=== PATIENT | female | born 1950 | race Caucasian/White ===

== ENCOUNTER → 2016-05-16 | Outpatient (CLI) | payer MEDICARE, BC ==
[~2016-05-16] MED LIST: COZAAR100 MG PO; CRESTOR 10MG10 MG PO; ENTOCORT EC3 MG PO; PROTONIX 40MG T40 MG PO; SYNTHROID0.05 MG/TA PO; XANAX XR1 M1 PO
== END ==
LOC: MC.RAD 13:20
DX: Z12.31 Encounter for screening mammogram for malignant neoplasm of breast (principal)

== ENCOUNTER → 2016-05-22 | Outpatient (CLI) | payer MEDICARE, BC | LOC: COL.RAD 09:52 | DX: M25.551 Pain in right hip (principal) | CPT/HCPCS: J3301 ==

== ENCOUNTER → 2016-08-28 | Outpatient (CLI) | payer MEDICARE, BC | LOC: COL.RAD 07:36 | DX: M25.551 Pain in right hip (principal) | CPT/HCPCS: J3301; Q9967 ==

== ENCOUNTER → 2016-11-27 | Outpatient (CLI) | payer MEDICARE, BC | LOC: COL.RAD 08:49 | DX: M25.551 Pain in right hip (principal) | CPT/HCPCS: J3301 ==

== ENCOUNTER → 2017-02-24 | Outpatient (CLI) | payer MEDICARE, BC | LOC: COL.RAD 10:23 | DX: K75.81 Nonalcoholic steatohepatitis (NASH) (principal); R74.8 Abnormal levels of other serum enzymes; Z90.5 Acquired absence of kidney; Z85.528 Personal history of other malignant neoplasm of kidney; K83.8 Other specified diseases of biliary tract ==

== ENCOUNTER → 2017-03-18 | Outpatient (CLI) | payer MEDICARE, BC | LOC: COL.RAD 02-25 10:00 | DX: M16.11 Unilateral primary osteoarthritis, right hip (principal) | CPT/HCPCS: J3301; Q9967 ==

== ENCOUNTER → 2017-07-02 | Outpatient (CLI) | payer MEDICARE, BC | LOC: COL.RAD 09:34 | DX: C64.2 Malignant neoplasm of left kidney, except renal pelvis (principal); Z90.5 Acquired absence of kidney; Z90.710 Acquired absence of both cervix and uterus; Z90.49 Acquired absence of other specified parts of digestive tract | CPT/HCPCS: J7040; Q9967 ==

== ENCOUNTER 2017-09-11 10:20 | Inpatient (IN) | payer MEDICARE, BC ==
[~2017-09-11] VITALS: Ht 154.9 cm; Wt 71.9 kg
[2017-11-16] VITALS (12 sets, daily range): BP systolic 95–143; BP diastolic 59–96; PULSE 80–116; TEMP 97.4–98.6
[2017-11-16] MEDS ORDERED: TYLENOL PM EXTR1 TA1 PO (06:00)
[2017-11-16] MEDS ORDERED: ULTRAM 50MG TAB50 MG PO (06:01)
[2017-11-16] MEDS ORDERED: ASPIRIN 81M81 MG/TA2 PO (06:02)
[2017-11-16] MEDS ORDERED: BENEFIBER PO (06:21)
[2017-11-16] MEDS ORDERED: ASPI325T6 PO (07:06)
[2017-11-16] MEDS ORDERED: ROXICODONE 55 MG/TAB PO (07:07)
[2017-11-17 04:06] VITALS: BP 134/73; PULSE 108; TEMP 98.9
[2017-11-17 06:49] LABS: HEMOGLOBIN 11.2 g/dl (12.5-16.0)
[2017-11-17 06:50] LABS: HEMATOCRIT 34.9 % (37.0-47.0)
[2017-11-17 07:54] VITALS: BP 127/65; PULSE 103; TEMP 98.3
[2017-11-17 11:16] VITALS: BP 130/76; PULSE 108; TEMP 99
[2017-11-17 15:32] VITALS: BP 101/67; PULSE 139; TEMP 98.8
[2017-11-17 19:51] VITALS: BP 142/64; PULSE 52; TEMP 99.3
[2017-11-17 23:08] VITALS: BP 130/68; PULSE 82; TEMP 97.9
[2017-11-18 05:52] VITALS: BP 123/78; PULSE 78; TEMP 98.3
[2017-11-18 06:34] LABS: HEMOGLOBIN 11.2 g/dl (12.5-16.0)
[2017-11-18 06:36] LABS: HEMATOCRIT 34.6 % (37.0-47.0)
[2017-11-18 07:53] VITALS: BP 109/73; PULSE 110; TEMP 98.6
== END 2017-11-18 12:15 | disposition home or self-care (01) | DRG 470 ==
LOC: JCC 11-16 05:09
PROVIDERS: Orthopaedic Surgery Sports Medicine
PROC: 0SR90JA Replacement of Right Hip Joint with Synthetic Substitute, Uncemented, Open Approach (ICD-10-PCS; principal; 2017-11-16 07:30)
DX: M16.11 Unilateral primary osteoarthritis, right hip (principal); I10 Essential (primary) hypertension; Z87.891 Personal history of nicotine dependence; Z85.520 Personal history of malignant carcinoid tumor of kidney; K75.81 Nonalcoholic steatohepatitis (NASH)
CPT/HCPCS: A9284; C1776; J0690; J2250; J2270; J2274; J2370; J2704; J7050; J7120

== ENCOUNTER → 2017-09-28 | Outpatient (CLI) | payer MEDICARE, BC | LOC: MC.RAD 06:51 | DX: Z12.31 Encounter for screening mammogram for malignant neoplasm of breast (principal) ==

== ENCOUNTER → 2017-11-09 | Outpatient (CLI) | payer MEDICARE, BC | LOC: COL.LAB 13:47 | DX: Z01.812 Encounter for preprocedural laboratory examination (principal) ==

== ENCOUNTER → 2018-02-26 | Outpatient (CLI) | payer MEDICARE, BC ==
[~2018-02-26] MED LIST changes: +ASPI325T6 PO; +ASPIRIN 81M81 MG/TA2 PO; +BENEFIBER PO; +ROXICODONE 55 MG/TAB PO; +TYLENOL PM EXTR1 TA1 PO; +ULTRAM 50MG TAB50 MG PO
== END ==
LOC: COL.RAD 07:30
DX: C64.9 Malignant neoplasm of unspecified kidney, except renal pelvis (principal); K75.81 Nonalcoholic steatohepatitis (NASH); Z90.49 Acquired absence of other specified parts of digestive tract; Z90.5 Acquired absence of kidney

== ENCOUNTER → 2018-12-08 | Outpatient (CLI) | payer MEDICARE, BC | LOC: MC.RAD 10:34 | DX: Z12.31 Encounter for screening mammogram for malignant neoplasm of breast (principal) ==

== ENCOUNTER → 2019-01-26 | Outpatient (CLI) | payer MEDICARE, BC | LOC: COL.VAS 10:40 | DX: G45.3 Amaurosis fugax (principal) ==

== ENCOUNTER → 2019-02-16 | Outpatient (CLI) | payer MEDICARE, BC | LOC: COL.RAD 10:14 | DX: R16.0 Hepatomegaly, not elsewhere classified (principal); K75.81 Nonalcoholic steatohepatitis (NASH); R74.8 Abnormal levels of other serum enzymes; R13.10 Dysphagia, unspecified; K21.9 Gastro-esophageal reflux disease without esophagitis; Z90.49 Acquired absence of other specified parts of digestive tract; Z90.5 Acquired absence of kidney ==

== ENCOUNTER → 2020-02-22 | Outpatient (CLI) | payer MEDICARE, BC | LOC: ZCOL.LAB 16:17 | DX: U07.1 COVID-19 (principal) ==

== ENCOUNTER → 2020-04-18 | Outpatient (CLI) | payer MEDICARE, BC | LOC: MC.RAD 13:46 | DX: Z12.31 Encounter for screening mammogram for malignant neoplasm of breast (principal) ==

== ENCOUNTER → 2020-04-18 | Outpatient (CLI) | payer MEDICARE, BC | LOC: COL.RAD 11:54 | DX: C64.9 Malignant neoplasm of unspecified kidney, except renal pelvis (principal); N13.30 Unspecified hydronephrosis; K76.0 Fatty (change of) liver, not elsewhere classified; Z90.5 Acquired absence of kidney; Z90.49 Acquired absence of other specified parts of digestive tract ==

== ENCOUNTER → 2021-02-15 | Outpatient (CLI) | payer MEDICARE, BC | LOC: COL.RAD 09:15 | DX: Z90.5 Acquired absence of kidney (principal); C64.9 Malignant neoplasm of unspecified kidney, except renal pelvis ==

== ENCOUNTER → 2021-04-17 | Outpatient (CLI) | payer MEDICARE, BC | LOC: COL.RAD 07:58 | DX: K75.81 Nonalcoholic steatohepatitis (NASH) (principal); K52.831 Collagenous colitis; K21.9 Gastro-esophageal reflux disease without esophagitis; Z90.49 Acquired absence of other specified parts of digestive tract ==

== ENCOUNTER → 2021-04-22 | Outpatient (CLI) | payer MEDICARE, BC | LOC: MC.RAD 10:29 | DX: Z12.31 Encounter for screening mammogram for malignant neoplasm of breast (principal) ==

== ENCOUNTER → 2023-04-22 | Outpatient (CLI) | payer MEDICARE, BC | LOC: COL.RAD 07:21 | DX: K75.81 Nonalcoholic steatohepatitis (NASH) (principal); K52.831 Collagenous colitis; R74.8 Abnormal levels of other serum enzymes; Z90.5 Acquired absence of kidney; Z85.528 Personal history of other malignant neoplasm of kidney ==